=== PATIENT | female | born 1995 | race Caucasian/White ===

== ENCOUNTER 2017-06-30 06:03 | Inpatient (IN) | payer OTHER ==
[2017-06-30] MEDS ORDERED: LORazepam TAB(*) 1 MG PO ONE (06:35)
--- NOTE | 2017-06-30 06:53 | ED ---
Dagmar Taylor Thomas, scribed for Varsha Shaver MD on 06/30/17 at 0636 . Psychiatric Complaint - HPI Summary HPI Summary: The patient is a 22 year old female presenting with concerns for with withdrawl. She was taking her prescribed medications of suboxone, Clonipin, and an unspecified antidepressant until three days ago, when she stopped taking these medications. She has symptoms of generalized weakness, cold sweats, and insomnia. The patient does admit to suicidal ideation in the last three days. She is a recovering heroin addict. Past medical history includes anorexia and depression. - History Of Current Complaint Chief Complaint: EDMentalHealth Time Seen by Provider: 06/30/17 06:19 Hx Obtained From: Patient Onset/Duration: Lasting Days - 3, Still Present Timing: Constant Severity Initially: Mild Severity Currently: Mild Alleviating Factor(s): Nothing Related History: Positive For: Prior Psychiatric Issues Has Suicidal: Reports: Thoughts Ingestion History: Type/Name Of Drug - Patient is a recovering heroin addict - Allergies/Home Medications Allergies/Adverse Reactions: Allergies Allergy/AdvReac Type Severity Reaction Status Date / Time No Known Allergies Allergy Verified 06/30/17 06:07 PMH/Surg Hx/FS Hx/Imm Hx Sensory History: Denies: Hx Legally Blind, Hx Deafness EENT History: Denies: Hx Deafness Psychiatric History: Reports: Hx Anxiety, Hx Eating Disorder, Hx Substance Abuse Infectious Disease History: No Infectious Disease History: Denies: Traveled Outside the [place] in Last 30 Days - Family History Known Family History: Positive: Other - Patient denies relevant FHx - Social History Occupation: Student Lives: Dormitory/Roommates Hx Substance Use: Yes Substance Use Type: Reports: Heroin Smoking Status (MU): Unknown if Ever Smoked Review of Systems Positive: Other - Generalized weakness, cold sweats Neurological: Other - Insomnia Positive: Other - Suicidal ideation All Other Systems Reviewed And Are Negative: Yes Physical Exam - Summary Physical Exam Summary: VITAL SIGNS: Reviewed. GENERAL: Patient is a well-developed and nourished female who is lying comfortable in the stretcher. Patient is not in any acute respiratory distress. HEAD AND FACE: No signs of trauma. No ecchymosis, hematomas or skull depressions. No sinus tenderness. EYES: PERRLA, EOMI x 2, No injected conjunctiva, no nystagmus. EARS: Hearing grossly intact. Ear canals and tympanic membranes are within normal limits. MOUTH: Oropharynx within normal limits. NECK: Supple, trachea is midline, no adenopathy, no JVD, no carotid bruit, no c- spine tenderness, neck with full ROM. CHEST: Symmetric, no tenderness at palpation LUNGS: Clear to auscultation bilaterally. No wheezing or crackles. CVS: Regular rate and rhythm, S1 and S2 present, no murmurs or gallops appreciated. ABDOMEN: Soft, non-tender. No signs of distention. No rebound no guarding, and no masses palpated. Bowel sounds are normal. EXTREMITIES: FROM in all major joints, no edema, no cyanosis or clubbing. NEURO: Alert and oriented x 3. No acute neurological deficits. Speech is normal and follows commands. SKIN: Dry and warm Triage Information Reviewed: Yes Vital Signs On Initial Exam: Initial Vitals Temp Pulse Resp BP Pulse Ox 98.8 F 77 20 110/70 100 06/30/17 06:04 06/30/17 06:04 06/30/17 06:04 06/30/17 06:04 06/30/17 06:04 Vital Signs Reviewed: Yes Diagnostics - Vital Signs Vital Signs Temp Pulse Resp BP Pulse Ox 06/30/17 06:04 98.8 F 77 20 110/70 100 - Laboratory Lab Statement: Any lab studies that have been ordered have been reviewed, and results considered in the medical decision making process. Course/Dx - Course Assessment/Plan: The patient is a 22 year old female presenting with concerns for with withdrawl. She was taking her prescribed medications of suboxone, Clonipin, and an unspecified antidepressant until three days ago, when she stopped taking these medications. She has symptoms of generalized weakness, cold sweats, and insomnia. The patient does admit to suicidal ideation in the last three days. The patient was given Ativan in the ED course. The patient will be signed out to Dr. Riley at shift change, awaiting medical clearance for mental health evaluation. - Differential Dx/Clinical Impression Provider Diagnosis: Substance abuse, Depression Discharge - Sign-Out/Discharge Documenting (check all that apply): Sign-Out Patient Signing out patient TO: Conor Riley - Discharge Plan Referrals: No Primary Care Phys,NOPCP [Primary Care Provider] - The documentation as recorded by the Dagmar navarrete Thomas accurately reflects the service I personally performed and the decisions made by me, Varsha Shaver MD.
[2017-06-30 07:03] LABS: ABS Basophils 0 10^3/ul (0-0.2); ABS Eosinophils 0.1 10^3/ul (0-0.6); ABS Lymphocytes 1.6 10^3/ul (1.0-4.8); ABS Monocytes 0.4 10^3/ul (0-0.8); ABS Neutrophils 5.8 10^3/ul (1.5-7.7); ABS Nucleated RBC 0 10^3/ul; Eosinophil % 1.3 % (0-6); Hematocrit 42 % (35-47); Lymphocyte % 20.4 % (25-47); Mean Corpuscular HGB Conc 34 g/dl (31-36); Mean Corpuscular Hemoglobin 31 pg (27-31); Mean Corpuscular Volume 91 fL (80-97); Mean Platelet Volume 9 um3 (7.4-10.4); Nucleated Red Blood Cells % 0.1; Platelet Count 188 10^3/ul (150-450); Red Blood Count 4.57 10^6/ul (4.0-5.4); Red Cell Distribution Width 12 % (10.5-15)
[2017-06-30 07:06] LABS: Urine Appearance Cloudy; Urine Blood Negative (Negative); Urine Color Amber; Urine Ketones Negative (Negative); Urine Protein 1+(30 mg/dL) (Negative); Urine Specific Gravity 1.036 (1.010-1.030); Urine Urobilinogen Negative (Negative)
[2017-06-30 07:22] LABS: EGFR Non-African American 108.1 (>60)
[2017-06-30] MEDS ORDERED: Acetaminophen TAB* 325 MG PO PRN (10:54)
[2017-06-30] MEDS ORDERED: Al Hydrox/Mg Hydrox/Simet LIQ* 30 ML UDC PO PRN (10:54)
[2017-06-30] MEDS: Nicotine GUM* 2 MG PO PRN ×2 (20:00→22:08)
[2017-06-30] MEDS: hydrOXYzine HCL TAB* 50 MG PO PRN (20:00)
[2017-07-01] MEDS: Nicotine GUM* 2 MG PO PRN ×5 (08:53→22:11)
[2017-07-01] MEDS: hydrOXYzine HCL TAB* 50 MG PO PRN (08:53)
--- NOTE | 2017-07-01 14:04 | ED ---
Ana Lilia Taylor Julia, scribed for Conor Riley MD on 06/30/17 at 0723 . Progress - Progress Note Progress Note: This patient is signed out from Dr. Shaver, awaiting medical clearance for mental health evaluation. Course/Dx - Course Course Of Treatment: Ms. Aldrich was admitted in stable condition with a diagnosis of mood disorder. - Diagnoses Provider Diagnoses: Substance abuse, Depression Discharge - Sign-Out/Discharge Documenting (check all that apply): Receiving Sign-Out Receiving patient FROM: Varsha Shaver - Discharge Plan [place] [place] Disposition and Condition [place]: [place] [place] The documentation as recorded by the Ana Lilia navarrete Julia accurately reflects the service I personally performed and the decisions made by , Conor Riley MD.
[2017-07-01] MEDS ORDERED: Mouth Piece, Nicotine* 1 EACH CARTRIDGE ONE (14:30)
[2017-07-01] MEDS: Nicotine Inhaler* 10 MG AMP INH PRN ×3 (14:30→22:11)
[2017-07-01] MEDS: Mouth Piece, Nicotine* 1 EACH CARTRIDGE INH PRN (14:30)
[2017-07-01] MEDS: Sertraline* 50 MG TAB PO SCH (14:31)
--- NOTE | 2017-07-01 16:11 | CONSULT ---
Consult Consult: Ms. Aldrich presented on a previous shift and was medically cleared. She had a MHE and was offered a voluntary admission which she accepted. She is being admitted in stable condition with a diagnosis of depression.
--- NOTE | 2017-07-01 16:27 | PN ---
MHU: Group Therapy Note - Service Type Service Type: [id number] Group Psychotherapy - Medication Education Group: Patient attended group and presented with flat affect that did not vary with discussion. Although responsive to direct prompts to respond to questions, patient did not engage in spontaneous conversation.
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
[2017-07-02] MEDS: Nicotine Inhaler* 10 MG AMP INH PRN ×5 (08:04→22:52)
[2017-07-02] MEDS: Sertraline* 50 MG TAB PO SCH (08:04)
[2017-07-02] MEDS: Nicotine GUM* 2 MG PO PRN ×5 (08:04→22:52)
--- NOTE | 2017-07-02 12:00 | PN ---
MHU: Group Therapy Note - Service Type Service Type: [id number] Group Psychotherapy - Cognitive Behavioral Group Therapy ( CBT):Patient was attentive and participatory in CBT programming this morning, and remained in good behavioral control. Patient expressed positive insights regarding relevant treatment interventions and goals.
--- NOTE | 2017-07-02 13:41 | PN ---
Subjective - Subjective Date of Service: 07/02/17 Service Type: 76714 Hosp care 15 min low complexity Subjective: Zaid is doing well today. She has spent the day making multiple phone calls to many [employer] [facility] [employer] [facility] departments trying to organize her return to college. She anticipates leaving Wednesday with a meeting with the crisis counselor at 4 pm on Wednesday. Zaid also had a good conversation with her dad. She states this is a great improvement over the previous conversation where her dad and mom stated they were disappointed that Zaid would find herself in the same situation once again. Objective - Appearance Appearance: Healthy Appearing Dysmorphic Features: No Hygiene: Normal Grooming: Well Kept - Behavior Psychomotor Activities: Normal Exhibits Abnormal Movement: No - Attitude and Relatedness Attitude and Relatedness: Cooperative Eye Contact: Good - Speech Quality: Unpressured Latencies: Normal Quantity: Appropriate - Mood Patient's Decription of Mood: "Fine" - Affect Observed Affect: Good Affect Consistent with: Euthymia - Thought Process Patient's Thought Process: Coherent Thought Content: No Passive Wish, No Suicidal Planning, No Homicidal Ideation, No Paranoid Ideation - Sensorium Experiencing Hallucinations: No, Sensorium is Clear Type of Hallucinations: Visual: No, Auditory: No, Command: No - Level of Consciousness Level of Consciousness: Alert Orientation: Yes Intact, Yes Orientated to Time, Yes Orientated to Place, Yes Orientated to Person - Impulse Control Impulse Control: Impaired - Insight and Judgement Insight and Judgement: Good - Group Participation Particating in Group Activities: Yes - Medication Management Medication Management Adherence: Yes - Additional Observations Comments: Zaid is happy today. She feels like she is on the road to discharge. Assessment - Assessment Inpatient DSM-V Dx: F33.1 Clinical Impression: 22-year-old woman who is in her first semester of her senior year in college at [employer] who comes to the hospital after being in the throes of despair from detoxing from Suboxone overuse. Plan - Plan Treatment Plan: Name: ZAID VALENCIA Birthdate: 1995 [id number] Continued Medication Management: Continue Outpt Medication Medications: Current Medications Acetaminophen (Tylenol Tab*) 650 mg PO Q4H PRN PRN Reason: for pain; or Temp >101 F Al Hydrox/Mg Hydrox/Simethicone (Maalox Plus*) 30 ml PO Q4H PRN PRN Reason: INDIGESTION Device (Nicotine Mouth Piece*) 1 each INH .USE WITH NICOTROL PRN PRN Reason: CRAVING Last Admin: 07/01/17 14:30 Dose: 1 each Hydroxyzine HCl (Atarax Tab*) 50 mg PO Q6H PRN PRN Reason: ANXIETY Last Admin: 07/01/17 08:53 Dose: 50 mg Nicotine (Nicotine Inhaler*) 10 mg INH Q2H PRN PRN Reason: CRAVING Last Admin: 07/02/17 13:03 Dose: 10 mg Nicotine Polacrilex (Nicotine Gum*) 2 mg PO Q2H PRN PRN Reason: CRAVINGS Last Admin: 07/02/17 13:03 Dose: 2 mg Sertraline HCl (Zoloft*) 50 mg PO DAILY HENRIQUE Last Admin: 07/02/17 08:04 Dose: 50 mg - Discharge Plan Discharge Plan: Outpatient Follow Up Outpatient Program: Services at [facility] Additional Comments: Zaid plans to return to [employer] and resume her major's academic requirements while dropping from the minor part of the program. She anticipates meeting on Wednesday with the crisis counselor there at 4 pm.
[2017-07-03] MEDS: Sertraline* 50 MG TAB PO SCH (08:17)
[2017-07-03] MEDS: Nicotine Inhaler* 10 MG AMP INH PRN ×6 (08:17→22:07)
[2017-07-03] MEDS: Nicotine GUM* 2 MG PO PRN ×6 (08:17→20:52)
[2017-07-03] MEDS: Mouth Piece, Nicotine* 1 EACH CARTRIDGE INH PRN ×2 (17:56→22:07)
[2017-07-04] MEDS: Nicotine GUM* 2 MG PO PRN ×7 (00:13→22:04)
[2017-07-04] MEDS: Sertraline* 50 MG TAB PO SCH (07:56)
[2017-07-04] MEDS: Nicotine Inhaler* 10 MG AMP INH PRN ×6 (07:56→22:04)
--- NOTE | 2017-07-04 18:37 | PN ---
Subjective - Subjective Date of Service: 07/04/17 Service Type: 88797 Hosp care 15 min low complexity Subjective: Zaid appears to be doing very well today. She is in the milieu with peers, happy and engaged. Says she fees great and her meds are helping. Slept well and he mood has improved significantly. Looking forwards to be discharged tomorrow. Objective - Appearance Appearance: Healthy Appearing Dysmorphic Features: No Hygiene: Normal Grooming: Fairly Well Kept - Behavior Psychomotor Activities: Normal Exhibits Abnormal Movement: No - Attitude and Relatedness Attitude and Relatedness: Appropriate Eye Contact: Good - Speech Quality: Unpressured Latencies: Normal Quantity: Appropriate - Mood Patient's Decription of Mood: "Good" - Affect Observed Affect: Good - Thought Process Patient's Thought Process: Coherent, Goal Directed Thought Content: No Passive Wish, No Suicidal Planning, No Homicidal Ideation, No Paranoid Ideation - Sensorium Experiencing Hallucinations: No, Sensorium is Clear Type of Hallucinations: Visual: No, Auditory: No, Command: No - Level of Consciousness Level of Consciousness: Alert Orientation: Yes Intact, Yes Orientated to Time, Yes Orientated to Place, Yes Orientated to Person - Impulse Control Impulse Control: Intact - Insight and Judgement Insight and Judgement: Fair - Group Participation Particating in Group Activities: Yes - Medication Management Medication Management Adherence: Yes Assessment - Assessment Merits Inpatient Hospitalization: Consolidate Improvements, For Discharge Planning Inpatient DSM-V Dx: F33.1 Clinical Impression: Appears stable and safe for discharge. Plan - Plan Treatment Plan: Name: ZAID VALENCIA Birthdate: 1995 [id number] Continued Medication Management: Continue Outpt Medication Medications: Current Medications Acetaminophen (Tylenol Tab*) 650 mg PO Q4H PRN PRN Reason: for pain; or Temp >101 F Al Hydrox/Mg Hydrox/Simethicone (Maalox Plus*) 30 ml PO Q4H PRN PRN Reason: INDIGESTION Device (Nicotine Mouth Piece*) 1 each INH .USE WITH NICOTROL PRN PRN Reason: CRAVING Last Admin: 07/03/17 22:07 Dose: 1 each Hydroxyzine HCl (Atarax Tab*) 50 mg PO Q6H PRN PRN Reason: ANXIETY Last Admin: 07/01/17 08:53 Dose: 50 mg Nicotine (Nicotine Inhaler*) 10 mg INH Q2H PRN PRN Reason: CRAVING Last Admin: 07/04/17 18:09 Dose: 10 mg Nicotine Polacrilex (Nicotine Gum*) 2 mg PO Q2H PRN PRN Reason: CRAVINGS Last Admin: 07/04/17 18:08 Dose: 2 mg Sertraline HCl (Zoloft*) 50 mg PO DAILY HENRIQUE Last Admin: 07/04/17 07:56 Dose: 50 mg - Discharge Plan Discharge Plan: Outpatient Follow Up Outpatient Program: [facility]
[2017-07-05] MEDS: Nicotine Inhaler* 10 MG AMP INH PRN ×2 (01:06→08:27)
[2017-07-05] MEDS: Nicotine GUM* 2 MG PO PRN ×2 (01:07→08:27)
[2017-07-05 07:54] VITALS: BP 116/64
[2017-07-05] MEDS: Sertraline* 50 MG TAB PO SCH (08:27)
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
== END 2017-07-05 11:00 | disposition home or self-care (01) | DRG 751 ==
LOC: ED 06:03 → BSU 14:28
PROVIDERS: ADMIT Psychiatry & Neurology Psychiatry; ATTEND Psychiatry & Neurology Psychiatry
DX: F33.1 Major depressive disorder, recurrent, moderate (principal); F19.14 Other psychoactive substance abuse with psychoactive substance-induced mood disorder; Z79.899 Other long term (current) drug therapy; Z88.8 Allergy status to other drugs, medicaments and biological substances
CPT/HCPCS: 36415; 80053; 80061; 80307; 80320; 80329; 81003; 81015; 83036; 84443; 84702; 85025; 87086; 90853; 99222; 99231; 99238; 99284; A9270-GY; G0480